=== PATIENT | female | born 1990 | race Caucasian/White ===

== ENCOUNTER 2020-03-28 06:09 | Emergency (ER) | payer MEDICAID, OTHER ==
[~2020-03-28] VITALS: Ht 170.2 cm; Wt 57.0 kg
[2020-03-28] MEDS ORDERED: ONDANSETRON HCL 4MG/2ML INJ IV STA (06:33)
[2020-03-28] MEDS ORDERED: KETOROLAC 30MG/ML VIAL IV STA (06:33)
[2020-03-28] MEDS ORDERED: CLINDAMYCIN HCL 150MG CAPSULE PO STA (06:33)
[2020-03-28] MEDS ORDERED: LORAZEPAM 2MG/ML CPJ IV ONE (06:45)
[2020-03-28] MEDS ORDERED: SODIUM CHLORIDE 0.9% 1,000 ML IV ONE (06:45)
[2020-03-28 06:54] LABS: BASOPHILS % 0.4 % (0.0-2.0); EOSINOPHILS % 0.9 % (0.0-5.0); HEMOGLOBIN. 12.8 g/dL (12.0-16.0); MEAN CORPUSCULAR HEMOGLOBIN 30.4 pg (28.0-32.0); MEAN PLATELET VOLUME 7.3 fl (7.4-10.4); MONOCYTES % 7.6 % (2.0-8.0); NEUTROPHILS % 79.1 % (40.0-76.0); PLATELET 320 x1000/uL (130-400); RED BLOOD CELL COUNT 4.22 mill/uL (4.2-5.4); RED CELL DISTRIBUTION WIDTH 13.7 % (11.6-14.6)
[2020-03-28 06:59] LABS: CHLORIDE 108 mEq/L (98-107)
[2020-03-28 07:01] LABS: ETHANOL BLOOD < 10 mg/dL
[2020-03-28 07:13] LABS: HCG SCREEN NEGATIVE
[2020-03-28 08:40] VITALS: BP 140/97
[2020-03-28 09:07] LABS: CLARITY URINE CLEAR (CLEAR); COLOR URINE YELLOW (YELLOW); KETONES URINE 1+ (NEGATIVE); LEUKOCYTE ESTERASE URINE 1+ (NEGATIVE); NITRITE URINE POSITIVE (NEGATIVE); OCCULT BLOOD URINE NEGATIVE (NEGATIVE); PH URINE 6.5 (4.5-8.0); PROTEIN URINE TRACE (NEGATIVE); SPECIFIC GRAVITY URINE 1.024 (1.005-1.030)
[2020-03-28 09:28] LABS: *BARBITURATES SCREEN URINE NEGATIVE (NEGATIVE); *BENZODIAZEPINES SCREEN URINE NEGATIVE (NEGATIVE); *COCAINE SCREEN URINE NEGATIVE (NEGATIVE); METHADONE URINE SCREEN NEGATIVE (NEGATIVE); OPIATES URINE SCREEN NEGATIVE (NEGATIVE); PHENCYCLIDINE URINE SCREEN NEGATIVE (NEGATIVE)
[2020-03-28 09:43] LABS: *AMPHETAMINES SCREEN URINE PRESUMTIVE POSITIVE (NEGATIVE); CANNABINOID URINE SCREEN PRESUMTIVE POSITIVE (NEGATIVE)
== END 2020-03-28 09:48 | disposition home or self-care (01) ==
LOC: ER 06:09
DX: T43.621A Poisoning by amphetamines, accidental (unintentional), initial encounter (principal); K02.9 Dental caries, unspecified; N30.00 Acute cystitis without hematuria; F12.10 Cannabis abuse, uncomplicated; F17.210 Nicotine dependence, cigarettes, uncomplicated; Y92.89 Other specified places as the place of occurrence of the external cause
CPT/HCPCS: 36415; 80053; 80305; 80320; 81003; 84703; 85025; 93005; 96361; 96374; 96375; 99284; 99406; J1885; J2060; J2405; J7030; G0480

== ENCOUNTER 2020-08-16 00:08 | Emergency (ER) | payer MEDICAID ==
[~2020-08-16] VITALS: Ht 157.5 cm; Wt 73.0 kg
[2020-08-16 01:10] VITALS: BP 121/55
[2020-08-16] MEDS ORDERED: CYCL5TAB MT (06:08)
[2020-08-16] MEDS ORDERED: NAPR-673 PO (06:08)
== END 2020-08-16 01:33 | disposition left against medical advice (07) ==
LOC: ER 00:08
DX: Z53.21 Procedure and treatment not carried out due to patient leaving prior to being seen by health care provider (principal)

== ENCOUNTER 2020-08-16 02:20 | Emergency (ER) | payer MEDICAID ==
[~2020-08-16] VITALS: Ht 157.5 cm; Wt 73.0 kg
[2020-08-16] MEDS ORDERED: IBUPROFEN 600MG TABLET PO STA (03:20)
[2020-08-16] MEDS ORDERED: LORAZEPAM 1MG TABLET PO ONE (03:30)
[2020-08-16 04:36] VITALS: BP 128/77
[2020-08-16] MEDS ORDERED: CYCL5TAB MT (06:08)
[2020-08-16] MEDS ORDERED: NAPR-673 PO (06:08)
== END 2020-08-16 06:15 | disposition home or self-care (01) ==
LOC: ER 02:20
DX: M54.2 Cervicalgia (principal); M54.9 Dorsalgia, unspecified; F15.10 Other stimulant abuse, uncomplicated; Z91.410 Personal history of adult physical and sexual abuse
CPT/HCPCS: 72040; 99283